=== PATIENT | female | born 1960 | race Caucasian/White ===

== ENCOUNTER 2023-03-04 10:26 | Outpatient (CLI) | payer OTHER ==
--- NOTE | 2023-03-04 14:59 | XRAY Report ---
PROCEDURE: Foot 3 View LT INDICATIONS: FOOT PAIN TECHNIQUE: 3 views of the foot were acquired. COMPARISON: None. FINDINGS: Bones: No fractures or dislocations. No suspicious bony lesions. Osteophyte formation is noted pr ojecting dorsally from the midfoot with overlying soft tissue prominence. Soft tissues: No suspicious soft tissue calcifications or masses. IMPRESSION: Dorsal soft tissue prominence with underlying osteophyte. Reviewed by: Radha Ashford MD on 03/04/2023 2:57 PM PDT Approved by: Radha Ashford MD on 03/04/2023 2:57 PM PDT Station ID: [id number]
== END 2023-03-04 10:27 | disposition home or self-care (01) ==
LOC: DI 10:26
PROVIDERS: ATTEND Podiatrist
DX: M25.775 Osteophyte, left foot (principal)

== ENCOUNTER 2023-04-13 09:41 | Outpatient (CLI) | payer OTHER ==
--- NOTE | 2023-04-13 17:11 | DEXA Report ---
PROCEDURE: Dexa Spine and/or Hip INDICATIONS: POST MENOPAUSAL TECHNIQUE: Dual energy x-ray absorptiometry (DXA) was performed on a [employer] System. Regions measur ed are the AP Spine, femoral neck, and if needed forearm. COMPARISON: None FINDINGS: Lumbar Spine: Bone Mineral Density 1.36 g/cm/cm,T score 1.6. Left Femoral Neck: Bone Mineral Density 1.032 g/cm/cm, T score 0.0. Left Hip: Bone Mineral Density 0.988 g/cm/cm,T score -0.2. (T score greater or equal to -1.0: NORMAL) (T score from -1.1 to -2.4: OSTEOPENIA) (T score less than or equal to -2.5 to: OSTEOPOROSIS) Impression: By WHO criteria, this patient has normal bone mineral density. No osteoporosis or osteopenia of the lumbar spine or the left hip. Patients with diagnosis of osteoporosis or osteopenia should have regular bone mineral density assess ment. For those eligible for Medicare, routine testing is allowed once every 2 years. Testing frequ ency can be increased for patients who have rapidly progressing disease or for those who are receivin g medical therapy to restore bone mass. Reviewed by: Juliana Lim MD on 04/13/2023 5:10 PM PST Approved by: Juliana Lim MD on 04/13/2023 5:10 PM PST Station ID: [id number]
== END 2023-04-13 09:42 | disposition home or self-care (01) ==
LOC: DI 09:41
PROVIDERS: ATTEND Physician Assistant Medical
DX: Z78.0 Asymptomatic menopausal state (principal); Z82.62 Family history of osteoporosis